=== PATIENT | female | born 1990 | race Caucasian/White ===

== ENCOUNTER 2020-11-24 18:08 | Emergency (ER) | payer OTHER ==
[2020-11-24] MEDS ORDERED: Bacitracin Oint 1 GM U/D Packet TOP ONE (18:46)
--- NOTE | 2020-11-24 19:06 | EDM.PDOC ---
ED HPI GENERAL MEDICAL PROBLEM - General Chief Complaint: Laceration Stated Complaint: CUT RIGHT HAND Time Seen by Provider: 11/24/20 18:35 Source of Information: Reports: Patient History Limitations: Reports: No Limitations - History of Present Illness INITIAL COMMENTS - FREE TEXT/NARRATIVE: 30-year-old female was cleaning a new set of knives when she cut herself on the back of the right hand just distal to the MP joint of the middle finger. She has a 2 cm transverse laceration into the subcutaneous tissue but no significant deep structures involved, she has full range of motion of the finger and no distal paresthesias. Her tetanus is current. Onset: Sudden Duration: Hour(s): (Within the last hour) Location: Reports: Upper Extremity, Right Associated Symptoms: Reports: No Other Symptoms - Related Data Allergies Allergy/AdvReac Type Severity Reaction Status Date / Time Latex, Natural Rubber Allergy Intermediate Burning Verified 11/24/20 18:31 Home Meds: Home Meds FLUoxetine [PROzac] 10 mg PO DAILY 11/24/20 [History] Phentermine HCl 37.5 mg PO DAILY 11/24/20 [History] Past Medical History Neurological History: Reports: Migraines Psychiatric History: Reports: Anxiety Endocrine/Metabolic History: Reports: Obesity/BMI 30+ Social & Family History - Tobacco Use Tobacco Use Status *Q: Never Tobacco User - Caffeine Use Caffeine Use: Reports: Coffee - Recreational Drug Use Recreational Drug Use: No ED ROS GENERAL - Review of Systems Review Of Systems: See Below Constitutional: Denies: Fever Respiratory: Reports: No Symptoms Cardiovascular: Reports: No Symptoms GI/Abdominal: Reports: No Symptoms Neurological: Denies: Paresthesia ED EXAM, SKIN/RASH Exam: See Below Exam Limited By: No Limitations General Appearance: Alert, No Apparent Distress Respiratory/Chest: No Respiratory Distress Extremities: Other (Exam is limited to the right hand, she has a 2 cm transverse laceration on the dorsal aspect of the right hand just distal to the MP joint) Neurological: Alert, Oriented, No Motor/Sensory Deficits Psychiatric: Normal Affect, Normal Mood Course - Vital Signs Last Recorded V/S: Last Vital Signs Temp 97.9 F 11/24/20 18:40 Pulse 86 11/24/20 18:40 Resp 16 11/24/20 18:40 BP 150/72 H 11/24/20 18:40 Pulse Ox 98 11/24/20 18:40 - Orders/Labs/Meds Meds: Medications Discontinued Medications Generic Name Dose Route Start Last Admin Trade Name Priscila PRN Reason Stop Dose Admin Bacitracin 1 dose 11/24/20 18:46 11/24/20 19:06 Bacitracin Oint 1 Gm U/D Packet TOP 11/24/20 18:47 1 dose ONETIME ONE Administration Lidocaine HCl 5 ml 11/24/20 18:46 11/24/20 19:06 Lidocaine 1% 5 Ml Sdv INJECT 11/24/20 18:47 5 ml ONETIME ONE Administration - Re-Assessments/Exams Free Text/Narrative Re-Assessment/Exam: 11/24/20 19:05 The wound was anesthetized with 1% lidocaine, cleansed thoroughly with saline and three 4-0 Ethilon sutures were used to close the wound. Topical bacitracin and a Band-Aid was applied, the stitches can be removed in 8 days. Departure - Departure Time of Disposition: 19:35 Disposition: Home, Self-Care 01 Clinical Impression: Laceration of finger of right hand Qualifiers: Encounter type: initial encounter Finger: middle finger Damage to nail status: without damage Foreign body presence: without foreign body Qualified Code(s): S61.212A - Laceration without foreign body of right middle finger without damage to nail, initial encounter - Discharge Information Instructions: Laceration Care, Adult, [id number] Referrals: Gabbie Bernal CNM [Primary Care Provider] - Forms: ED Department Discharge Care Plan Goals: Keep wound covered and clean while healing, recheck in 8 days for suture removal or return sooner if concerns of infection or not healing satisfactorily. Sepsis Event Note (ED) - Evaluation Sepsis Screening Result: No Definite Risk - Focused Exam Vital Signs: Vital Signs Temp Pulse Resp BP Pulse Ox 11/24/20 18:40 97.9 F 86 16 150/72 H 98 11/24/20 18:28 97.9 F 86 16 150/72 H 98
== END 2020-11-24 19:36 | disposition home or self-care (01) ==
LOC: JP.ED 18:08
DX: S61.212A Laceration without foreign body of right middle finger without damage to nail, initial encounter (principal); Z91.040 Latex allergy status; E66.9 Obesity, unspecified; Z68.42 Body mass index [BMI] 45.0-49.9, adult; W26.0XXA Contact with knife, initial encounter
CPT/HCPCS: 12001; 99282-25